=== PATIENT | male | born 1970 ===

== ENCOUNTER 2024-07-01 08:09 | Day surgery (SDC) | payer OTHER ==
[2024-07-01] VITALS (20 sets, daily range): BP systolic 91–150; BP diastolic 70–103
[~2024-07-01] VITALS: Ht 177.8 cm; Wt 104.6 kg
[~2024-07-01 08:09] MED LIST: LISI20 PO; Lactated Ringer's 1,000 ML IV SCH; OXYACE5T PO
--- NOTE | 2024-07-01 08:44 | NUR ---
History, Chart, Medications and Allergies reviewed before start of procedure. Lungs clear T/O to Auscultation. Patient states colon prep results clear. Pre-Op teaching done. Pt verbalizes understanding. Patient States Post-Procedure ride home has been arranged.
[2024-07-01] MEDS ORDERED: propofoL 40 ML IV ONE (08:53)
[2024-07-01] MEDS ORDERED: Midazolam HCl 1MG / ML 2ML Vial ONE (09:03)
--- NOTE | 2024-07-01 09:09 | NUR ---
07/01/24 0909 Anne Marie Pinedo HISTORY, CHART, MEDICATIONS AND ALLERGIES REVIEWED BEFORE START OF PROCEDURE. PATIENT CONFIRMS NPO STATUS AND AGREES WITH SCHEDULED PROCEDURE. 3-LEAD EKG REVIEWED WITH PHYSICIAN PRIOR TO START OF PROCEDURE. MONITOR INTACT WITH CONTINUOUS PULSE OXIMETRY,CAPNOGRAPHY, 3-LEAD EKG, INTERMITTENT BP. SUPPLEMENTAL O2 TO BE TITRATED THROUGHOUT PROCEDURE TO MAINTAIN O2 SATURATION ABOVE 90%. PATIENT DETERMINED TO BE ASA APPROPRIATE FOR PROPOFOL SEDATION PRIOR TO START OF PROCEDURE BY DR. CHOW. History, Chart, Medications and Allergies reviewed before start of procedure. MALLAMPATI CLASS 3 AIRWAY: VISUALIZATION OF ONLY THE BASE OF THE UVULA.
--- NOTE | 2024-07-01 10:01 | NUR ---
Patient up to Ambulate independently. Gait steady. Discharge instructions reviewed with patient. Patient verbalizes understanding. Copy given to patient to take home. Patient States Post-Procedure ride home has been arranged. Discharged via wheelchair to private car for ride home.
== END 2024-07-01 10:01 | disposition home or self-care (01) ==
LOC: ORSCMMR 08:09 → ORD 09:00 → ORSCMMR 10:01
PROVIDERS: Internal Medicine Gastroenterology
PROC: 0DBM8ZX Excision of Descending Colon, Via Natural or Artificial Opening Endoscopic, Diagnostic (ICD-10-PCS; principal; 2024-07-01 09:00)
PROC: 0DBL8ZX Excision of Transverse Colon, Via Natural or Artificial Opening Endoscopic, Diagnostic (ICD-10-PCS; principal; 2024-07-01 09:00)
DX: Z12.11 Encounter for screening for malignant neoplasm of colon (principal); D12.4 Benign neoplasm of descending colon; K63.5 Polyp of colon; I10 Essential (primary) hypertension; Z90.49 Acquired absence of other specified parts of digestive tract; F17.210 Nicotine dependence, cigarettes, uncomplicated; Z79.899 Other long term (current) drug therapy
CPT/HCPCS: 88305; J2250; J2704; J7120